=== PATIENT | female | born 1990 | race Caucasian/White ===

== ENCOUNTER 2023-08-28 09:01 | Outpatient (CLI) | payer OTHER, SELFPAY | END 2023-08-28 09:02 | disposition home or self-care (01) | PROVIDERS: PCP Family Medicine; Visit Provider Family Medicine | DX: E78.5 Hyperlipidemia, unspecified (principal); R53.83 Other fatigue; F41.9 Anxiety disorder, unspecified | CPT/HCPCS: 80053; 80061; 84443 ==

== ENCOUNTER 2023-11-04 17:24 | Outpatient (CLI) | payer OTHER, SELFPAY | END 2023-11-04 17:25 | disposition home or self-care (01) | LOC: NFLDUCREF 17:49 | PROVIDERS: PCP Family Medicine; Visit Provider Physician Assistant | DX: R21 Rash and other nonspecific skin eruption (principal) | CPT/HCPCS: 87070; 87186 ==